=== PATIENT | female | born 1945 | race Caucasian/White ===

== ENCOUNTER → 2017-03-06 | Outpatient (CLI) | payer MEDICARE ==
[~2017-03-06] MED LIST: ASPI-158 PO; ASPI325T4 PO; HCTZ12.5T PO; MECL-105 PO; SIMV40TA2 PO
[2017-03-06 09:10] LABS: BASOPHILS % (AUTO) 1 % (0-2); EOSINOPHILS # (AUTO) 0.1 10^3uL; EOSINOPHILS % (AUTO) 2 % (0-4); LYMPHOCYTES # (AUTO) 1.4 X10^3; MEAN CORPUSCULAR HEMOGLOBIN 26.8 PG (26.0-34.0); MEAN CORPUSCULAR HGB CONC 33.1 g/dL (31.0-37.0); MEAN CORPUSCULAR VOLUME 81 FL (80-100); MEAN PLATELET VOLUME 9.6 FL (6.0-9.5); MONOCYTES # (AUTO) 0.4 X10^3; MONOCYTES % (AUTO) 8 % (3-11); NEUTROPHILS # (AUTO) 3.4 X10^3; NEUTROPHILS % (AUTO) 63 % (51-67); PLATELET COUNT 256 10^3uL (150-450); WHITE BLOOD COUNT 5.34 10^3uL (4.0-11.0)
[2017-03-06 09:23] LABS: ALBUMIN 4.6 g/dL (3.4-5.0); ANION GAP 16.6 MEQ/L (3-15); TOTAL PROTEIN 7.6 g/dL (6.4-8.5)
--- NOTE | 2017-03-06 10:27 | Diagnostic Imaging Report ---
INDICATION: Skin cancer. 2 views 9:18 AM AVAILABLE COMPARISONS: None EXAMINATION: PA and lateral films were obtained. FINDINGS: The cardiac silhouette, mediastinal configuration, and pulmonary vascularity are within normal limits. No significant pleural, lung parenchymal or osseous lesion is identified. IMPRESSION: 1. No significant chest x-ray abnormality is identified. Dictated by: Dictated on workstation # [id number]
== END ==
LOC: LAB 08:52
PROVIDERS: ATTEND Internal Medicine Hematology & Oncology
DX: C43.9 Malignant melanoma of skin, unspecified (principal)
CPT/HCPCS: 36415; 71020; 80053; 85025